=== PATIENT | male | born 1990 | race Caucasian/White ===

== ENCOUNTER → 2017-09-20 | Outpatient (CLI) | payer OTHER ==
[~2017-09-20] MED LIST: BUPR150T2 PO; CLON1 PO; CODACE30 PO; LITHIUM; NAPR500 PO; QUETIAPINE PO; ZOLP10 PO; [UNRECOGNIZED DRUG - OTHER] PO
[2017-09-20 18:55] LABS: Specimen Source URINE
[2017-09-21 14:22] LABS: Source Urine
[2017-09-21 20:27] LABS: HCV Non Reactive (NR)
== END | disposition home or self-care (01) ==
LOC: LAB EV 18:51
PROVIDERS: Family Medicine
DX: Z72.51 High risk heterosexual behavior (principal)
CPT/HCPCS: 80074; 86592; 87389; 87491; 87591